=== PATIENT | female | born 1975 | race Caucasian/White ===

== ENCOUNTER 2016-10-25 13:01 | Day surgery (SDC) | payer BC ==
--- NOTE | ~2016-10-25 | OP ---
Record Of Operation [facility] [address] [place]. [address] NAME: HOLLY BAZAN : 73 STATUS : [facility]#: [id number] AGE: 41 ADM/REG DATE : 10/25/16 MR#: [id number] REPORT SERV DATE: 10/25/16 DICTATED BY: KYLE WALKER III DATE: 10/25/16 REPORT STATUS : Draft TRANSCRIBED BY: MODL DATE: 10/25/16 DATE OF PROCEDURE: 10/25/2016 PREOPERATIVE DIAGNOSIS: Left distal ureteral calculus. POSTOPERATIVE DIAGNOSIS: Left distal ureteral calculus. PROCEDURE: Cystoscopy, left retrograde pyelogram, left ureteroscopy, and laser ablation of stone, with basket extraction of fragments, and double-J stent placement. SURGEON: Kyle Walker M.D. ANESTHESIA: General. SPECIMEN: Stone fragment. ESTIMATED BLOOD LOSS: Less than 5 mL. INDICATION: Ms. Bazan is a 41-year-old white female, with a known left distal ureteral calculus. She has been unable to pass this stone. Consent is obtained for the above. DESCRIPTION OF PROCEDURE: After consent was obtained, the patient was identified. She was taken to the OR and put to sleep. She was then prepped and draped in usual fashion. The 22 Greek cystoscope was made ready and inserted into the bladder. The bladder was inspected, there were no tumors, stones, or foreign bodies noted. A cone-tipped ureteral catheter was flushed and it was used to obtain a left retrograde pyelogram. There was a filling defect in the distal ureter consistent with a stone. There was minimal dilation above the level of the stone. A Glidewire was then passed up the left ureter into the renal collecting system. A ureteral access sheath was then used to dilate the transmural ureter. The ureteroscope was made ready and advanced to the left ureter. The stone was visualized. The holmium laser was made ready. It was then used to fragment the stone, when sufficient fragmentation had occurred, a Nitinol basket was used to remove the fragments. There were two main fragments that came out together, these were passed off as specimen. The left ureter was reinspected up to the level of the UPJ, there were no other fragments noted. The guidewire was then backloaded through the cystoscope, which was advanced to the bladder. A 6 x 24 cm double-J ureteral stent was then advanced over the wire, when in position, the wire was removed. The stent was noted to coil in the renal collecting system as well as the bladder. The bladder was then drained, and the scope was removed. The string was left attached to the stent, but a knot was placed in it closer to the urethral meatus and sewed, and the excess was cut off. The patient was awakened and taken to recovery in stable condition. PH/MODL Kyle Walker Record Of [address] [address] NAME: HOLLY BAZAN : 73 STATUS : [facility] PAT#: [id number] AGE: 41 ADM/REG DATE : 10/25/16 MR#: [id number] REPORT SERV DATE: 10/25/16 DICTATED BY: KYLE WALKER III DATE: 10/25/16 REPORT STATUS : Draft TRANSCRIBED BY: MODL DATE: 10/25/16 Igor YOON / [id number] CC: Igor Gomez III, MADELINE T.
[~2016-10-25 13:01] MED LIST: FLOMAX4 PO; PCET PO; PR25 PO; TRAZ100 PO
[2016-10-28 20:02] LABS: STONE COMPOSITION TWO DNR (())
== END 2016-10-25 17:31 | disposition home or self-care (01) ==
LOC: SDC 13:01
PROVIDERS: Urology
PROC: 0T778DZ Dilation of Left Ureter with Intraluminal Device, Via Natural or Artificial Opening Endoscopic (ICD-10-PCS; 2016-10-25)
PROC: BT1FZZZ Fluoroscopy of Left Kidney, Ureter and Bladder (ICD-10-PCS; 2016-10-25)
PROC: 0TC78ZZ Extirpation of Matter from Left Ureter, Via Natural or Artificial Opening Endoscopic (ICD-10-PCS; 2016-10-25)
PROC: 0TF78ZZ Fragmentation in Left Ureter, Via Natural or Artificial Opening Endoscopic (ICD-10-PCS; principal; 2016-10-25 14:30)
DX: N20.1 Calculus of ureter (principal); L40.9 Psoriasis, unspecified; F17.210 Nicotine dependence, cigarettes, uncomplicated; F41.9 Anxiety disorder, unspecified; Z88.0 Allergy status to penicillin; Z79.899 Other long term (current) drug therapy; Z90.710 Acquired absence of both cervix and uterus
CPT/HCPCS: 74420; 82365; A9270-GY; C1758; C1769; C2617; J2250; J2405; J2710; J3010; Q9967